=== PATIENT | male | born 1970 | race Caucasian/White ===

== ENCOUNTER → 2021-03-11 11:02 | Outpatient (CLI) | payer OTHER, SELFPAY ==
[2021-03-11 11:55] LABS: Add Manual Diff / Slide Review NO; Basophils Absolute Auto 0 /uL (0-100); Basophils Percent Auto 0.4 % (0-2); Eosinophils Absolute Auto 100 /uL (0-450); Eosinophils Percent Auto 0.8 % (2-4); Hematocrit 41.6 % (41-53); Hemoglobin 14.3 g/dL (13.5-17.5); Lymphocytes Absolute Auto 1800 /uL (1100-4500); Lymphocytes Percent Auto 23.2 % (25-40); Mean Corpuscular HGB Conc 34.3 % (30-36); Mean Corpuscular Hemoglobin 32.8 PG (26-34); Mean Corpuscular Volume 95.9 fL (80-100); Monocytes Absolute Auto 600 /uL (0-900); Monocytes Percent Auto 7.2 % (3-14); Neutrophils Absolute Auto 5300 /uL (1500-7000); Neutrophils Percent Auto 68.4 % (50-75); Platelet Count 213 X10^3/uL (150-400); Red Blood Cell Count 4.34 X10^6/uL (4.5-5.9); Red Cell Distribution Width 14.2 % (11.6-14.8); White Blood Cell Count 7.8 X10^3/uL (4.5-11.0)
[2021-03-11 12:17] LABS: Alanine Aminotransferase 23 IU/L (<50); Albumin 4.8 g/dL (3.5-5.0); Albumin Globulin Ratio 1.8 (1.0-2.8); Alkaline Phosphatase 46 U/L (38-126); Aspartate Aminotransferase 33 IU/L (17-59); BUN Creatinine Ratio 12.3 (6-22); Bilirubin Total 0.3 mg/dL (0.2-1.3); Blood Urea Nitrogen 9 mg/dL (9-20); Calcium 9.6 mg/dL (8.4-10.2); Carbon Dioxide 27 mmol/L (22-32); Chloride 103 mmol/L (98-107); Cholesterol 246 mg/dL (140-199); Estimated Glomerular Filt Rate > 60.0 mL/min (>60); Globulin 2.7 g/dL (1.7-4.1); Glucose 98 mg/dL (70-100); HDL Cholesterol 53 mg/dL (40-60); HEMOLYSIS < 15 (0-50); LDL Cholesterol Calculated 138 mg/dL (<100); Potassium 4.2 mmol/L (3.4-5.1); Sodium 137 mmol/L (137-145); Total Protein 7.5 g/dL (6.3-8.2); Triglycerides 274 mg/dL (35-150)
[2021-03-11 12:51] LABS: TSH w/ Reflex to FT4 1.12 uIU/mL (0.47-4.68)
== END ==
PROVIDERS: PCP Family Medicine; Referring Provider Family Medicine; Visit Provider Family Medicine
DX: Z13.220 Encounter for screening for lipoid disorders (principal); Z13.29 Encounter for screening for other suspected endocrine disorder; Z85.07 Personal history of malignant neoplasm of pancreas
CPT/HCPCS: 36415; 80053; 80061; 84443; 85025

== ENCOUNTER 2024-04-18 15:51 | Emergency (ER) | payer SELFPAY ==
[2024-04-18 16:01] VITALS: BP 113/66; PULSE 93; RESP 22; TEMP 38.2; O2SAT 100; BMI 21.6
[2024-04-18 16:28] LABS: Strep Grp A by PCR Rapid Negative (Negative)
[2024-04-18 17:03] LABS: Influenza A - CEPHEID Flu A NEGATIVE (NEGATIVE); Influenza B - CEPHEID Flu B NEGATIVE (NEGATIVE); Respiratory Syncytial Virus Negative (Negative)
[2024-04-18 17:04] LABS: COVID-19 CEPHEID 4-PLEX PCR Negative (Negative)
--- NOTE | 2024-04-18 18:30 | ED.URI ---
HPI - URI/Sore Throat General Chief Complaint: Upper Respiratory Symptoms Stated Complaint: Tonsilitis Source: patient Mode of arrival: Ambulatory History of Present Illness HPI Narrative: Patient left without being seen by provider Related Data Home Medications Medication Instructions Recorded Confirmed No Known Home Medications 03/16/21 04/20/21 Allergies Allergy/AdvReac Type Severity Reaction Status Date / Time No Known Drug Allergies Allergy Verified 04/18/24 16:05 Patient History Surgical History History of vasectomy Family History Mother Cancer Social History Smoking Status: Former smoker Smoking Status: Former smoker alcohol intake frequency: 0-2 drinks per day Substance Use Type: marijuana Exam Initial Vital Signs Initial Vital Signs: Vital Signs Temperature 100.7 F H 04/18/24 16:01 Pulse Rate 93 H 04/18/24 16:01 Respiratory Rate 22 04/18/24 16:01 Blood Pressure 113/66 04/18/24 16:01 Pulse Oximetry 100 04/18/24 16:01 Oxygen Delivery Method Room Air 04/18/24 16:01 Course Orders Ordered: ED Orders 04/18/24 16:10 Covid-19 + FLU A/B + RSV - PCR Stat Strep Grp A by PCR Rapid Stat Vital Signs Vital signs: Vital Signs - 8 hr 04/18/24 16:01 Temperature 100.7 F H Pulse Rate 93 H Respiratory Rate 22 Blood Pressure 113/66 Pulse Oximetry 100 Oxygen Delivery Method Room Air MDM - URI/Sore Throat Lab Data Labs: Lab Results 04/18/24 Range/Units 16:10 SARS-CoV-2 (PCR) Negative (Negative) Influenza A (RT-PCR) Flu a negative (NEGATIVE) Influenza B (RT-PCR) Flu b negative (NEGATIVE) RSV (PCR) Negative (Negative) Group A Strep (PCR) Negative (Negative) Discharge Plan Departure Patient Disposition: Left Without Being Seen Clinical Impression: Patient left after triage Prescriptions: No Action No Known Home Medications
== END 2024-04-18 17:28 | disposition left against medical advice (07) ==
PROVIDERS: Emergency Provider Emergency Medicine; PCP Family Medicine
DX: J02.9 Acute pharyngitis, unspecified (principal); Z11.52 Encounter for screening for COVID-19
CPT/HCPCS: 0241U; 87651; 99281

== ENCOUNTER 2024-04-19 09:47 | Emergency (ER) | payer SELFPAY ==
[2024-04-19 09:54] VITALS: BP 114/75; PULSE 88; RESP 17; TEMP 37.1; O2SAT 99; BMI 21.6
--- NOTE | 2024-04-19 10:00 | ED.URI ---
HPI - URI/Sore Throat General Chief Complaint: Upper Respiratory Symptoms Stated Complaint: here yesterday, sore throat not eating Time Seen by Provider: 04/19/24 09:51 Source: patient Mode of arrival: Ambulatory History of Present Illness HPI Narrative: 53-year-old male with 3-4 days duration of dry cough, sore throat, muscle aches. He was triaged here yesterday but not seen by provider, left without being seen. He did undergo testing with COVID/flu swab, as well as swab for strep, left before being informed of any results. He has not taking any Tylenol or Motrin, says he does not have any at home Related Data Home Medications Medication Instructions Recorded Confirmed No Known Home Medications 03/16/21 04/19/24 Allergies Allergy/AdvReac Type Severity Reaction Status Date / Time No Known Drug Allergies Allergy Verified 04/19/24 09:58 Review of Systems Review of Systems Narrative: see HPI Patient History Surgical History History of vasectomy Family History Mother Cancer Social History Smoking Status: Former smoker Smoking Status: Former smoker alcohol intake frequency: a few times a week Substance Use Type: marijuana Exam Narrative Exam Narrative: GENERAL: Well-developed patient, in mild distress. HEAD: Atraumatic. Normocephalic. EYES: Pupils equal round and reactive. Extraocular motions intact. No scleral icterus. No injection or drainage. ENT: Nose without bleeding, purulent drainage. Throat without erythema, tonsillar hypertrophy or exudate. Airway patent. NECK: Trachea midline. Non tender CARDIOVASCULAR: Regular rate and rhythm without murmurs, gallops, or rubs. RESPIRATORY: Clear to auscultation. Breath sounds equal bilaterally. No wheezes, rales, or rhonchi. GASTROINTESTINAL: Abdomen soft, non-tender, nondistended. EXTREMITIES: No edema or joint tenderness. BACK: Nontender without deformity or crepitance. No flank tenderness. NEURO: AOx3. Nonfocal neuro exam SKIN: No rash or erythema of visible areas Initial Vital Signs Initial Vital Signs: Vital Signs Temperature 98.8 F 04/19/24 09:54 Pulse Rate 88 04/19/24 09:54 Respiratory Rate 17 04/19/24 09:54 Blood Pressure 114/75 04/19/24 09:54 Pulse Oximetry 99 04/19/24 09:54 Oxygen Delivery Method Room Air 04/19/24 09:54 Course Orders Ordered: Discontinued Medications Acetaminophen (Acetaminophen 325 Mg Tablet) 975 mg PO NOW ONE Stop: 04/19/24 10:02 Last Admin: 04/19/24 10:15 Dose: 975 mg Documented By: EUGENIA Vital Signs Vital signs: Vital Signs - 8 hr 04/19/24 09:54 Temperature 98.8 F Pulse Rate 88 Respiratory Rate 17 Blood Pressure 114/75 Pulse Oximetry 99 Oxygen Delivery Method Room Air MDM - URI/Sore Throat Lab Data Attestation: I reviewed the patient's lab results. Lab results narrative: From yesterday when he was not seen, COVID and flu and RSV negative, strep screen negative. Patient given a copy of these lab results from yesterday. [facility] Narrative Medical decision making narrative: 53-year-old male with sore throat and dry cough, triage but not seen yesterday, had COVID and RSV and flu swabs done that were negative, strep screen that was negative, left without results yesterday. We gave him a copy of the printed results from yesterday's lab tests. Lungs clear, oropharynx unremarkable at this time, no drool, tolerate supine position well, moves neck well. No respiratory distress. He has not taken any analgesics [id number], states that he does not have any. P.o. Tylenol dose for now. Advised recheck with PCP if not improved next couple of days. Return precautions discussed. Discharged home Discharge Plan Departure Patient Disposition: Home Clinical Impression: Upper respiratory infection, Sore throat Activity Restrictions/Additional Instructions: Cough and sore throat for the last 4 days, seen yesterday at triage but not seen by provider. Test sent at that time included COVID, RSV, influenza a, influenza B viral swabs, all were negative then. Strep screen of the throat was negative then as well. You apparently had left before results were known. You were given a copy of these test results from yesterday. On exam today your lungs are clear, you did not need any oxygen, no respiratory distress, oropharyngeal exam unremarkable at this time. You were not taking any Tylenol or Motrin, oral dose of Tylenol given. Advised Tylenol or Motrin as needed for muscle aches and pains sore throat. Recheck with your regular doctor if not improving next couple of days. Return to this/nearest emergency department for any change worsening symptoms or any concerns prior Prescriptions: No Action No Known Home Medications Referrals: Maykel Gandara MD [Primary Care Provider] - Stand Alone Forms: Patient Portal/API
[2024-04-19] MEDS: ACETAMINOPHEN 325 MG TABLET 975 MG PO (10:15)
== END 2024-04-19 10:24 | disposition home or self-care (01) ==
PROVIDERS: Emergency Provider Emergency Medicine; PCP Family Medicine
DX: J06.9 Acute upper respiratory infection, unspecified (principal); J02.9 Acute pharyngitis, unspecified
CPT/HCPCS: 99282; 99283